=== PATIENT | female | born 1965 | race Caucasian/White ===

== ENCOUNTER 2021-04-06 17:34 | Emergency (ER) | payer OTHER, SELFPAY ==
[2021-04-06] VITALS (32 sets, daily range): BP systolic 91–143; BP diastolic 66–101; PULSE 88–178; RESP 11–22; TEMP 36.4–36.6; O2SAT 97–100
--- NOTE | 2021-04-06 17:30 | RT.EKG_ITS ---
APPROVED REPORT Exam: Resting ECG Reason for Exam: tachycardia Patient Location: E HR:160 bpm ECG Measurements Heart Rate 160 AXIS MD [id number] P 0 QRSd 100 QRS 43 QT 295 T 23 QTc 481 Conclusion SVT...rate> 99
[2021-04-06] MEDS: Normal Saline Flush 10 ML SYR IVP (18:29)
[2021-04-06] MEDS: Adenosine 6 MG/2 ML VIAL IVP (18:29)
[2021-04-06 19:10] LABS: Abs Immature Grans 0.02 10^3/uL (0.0-0.06); Absolute Basophil Count 0.09 10^3/uL (0.0-0.2); Absolute Eosinophil Count 0.37 10^3/uL (0.0-0.7); Absolute Lymphocyte Count 3.38 10^3/uL (1.2-3.4); Absolute Monocyte Count 0.71 10^3/uL (0.1-0.8); Eosinophils % 4.1; HCT 41.7 % (36.0-46.0); HGB 13.9 g/dL (11.2-15.7); Immature Grans % 0.2; Lymphocytes % 37.3; MCH 29.3 pg (27.0-33.0); MCHC 33.3 % (32.0-36.0); MPV 9.8 fL (8.0-11.0); Monocytes % 7.8; Neutrophils % 49.6; Nucleated RBC 0 %; Platelet Count 535 10^3/uL (130-400); RBC 4.74 10^6/uL (3.93-5.22); RDW 14.7 % (11.7-14.6); RDW-SD 47.6 fL; WBC 9.07 10^3/uL (4.4-10.8)
[2021-04-06 19:27] LABS: ALT 57 U/L (14-59); AST 33 U/L (15-37); Albumin 4.1 g/dL (3.4-5.0); Alkaline Phosphatase 94 U/L (46-116); Anion Gap 11.6 mmol/L (3-11); BUN 16 mg/dL (7-18); Bilirubin, Total 0.3 mg/dL (0.2-1.0); CO2 25.4 mmol/L (21.0-32.0); CREATININE 0.9 mg/dL (0.55-1.02); Calcium 8.7 mg/dL (8.5-10.1); Chloride 104 mmol/L (98-107); Glucose 135 mg/dL (74-106); Magnesium 2.1 mg/dL (1.8-2.4); Potassium 3.7 mmol/L (3.5-5.1); Sodium 141 mmol/L (136-145); TSH (W/Ref FT4) 0.36 uIU/mL (0.36-3.74); Troponin I < 0.05 ng/mL (<0.06)
--- NOTE | 2021-04-06 19:30 | RT.EKG_ITS ---
APPROVED REPORT Exam: Resting ECG Reason for Exam: medication cardioversion Patient Location: E HR:97 bpm ECG Measurements Heart Rate 97 AXIS OH 199 P 54 QRSd 91 QRS 39 QT 345 T 31 QTc 440 Conclusion Sinus rhythm...normal P axis, V-rate 60- 99 Borderline prolonged OH interval...OH >197, V-rate 91-120
--- NOTE | 2021-04-06 19:43 | W.ED.GENAD ---
Discharge Plan Disposition Patient Disposition: HOME Condition: Stable Discharge Details Clinical Impression: SVT (supraventricular tachycardia) Primary Care Provider: Do Bolden ED Provider: Yang Hopper Home Meds and New Rx's Prescriptions: Continued nortriptyline 10 mg Capsule 20 mg PO HS RF: 0 omeprazole 20 mg Capsule,Delayed Release(Dr/Ec) 20 mg PO DAILY RF: 0 duloxetine [Cymbalta] 60 mg Capsule,Delayed Release(Dr/Ec) 60 mg PO DAILY RF: 0 diclofenac sodium 75 mg Tablet,Delayed Release (Dr/Ec) 75 mg PO BID RF: 0 cyclobenzaprine 10 mg Tablet 10 mg PO BID PRNRF: 0 Discharge Instructions Instructions: Supraventricular Tachycardia (ED) Additional Instructions: Today you were seen in the emergency department and had a supraventricular tachycardia noted on EKG. Adenosine 6 mg IV was administered and you converted to a sinus rhythm. It is recommended that you rest today and tomorrow with no exertional activities until cleared by a physician. Please do not consume caffeine or alcohol until cleared by physician. Please contact your primary care physician to arrange follow-up. Please contact [facility] cardiology group on Thursday to arrange timely follow-up. Return to the ER for any worsening or new concerning symptoms. Referrals: Do Bolden [Primary Care Provider] - Maida Prasad MD [MD CONSULTING PHYSICIAN] - Discharge Data Discharge Date/Time-TO BE ENTERED AT DEPARTURE: 04/06/21 20:17 Medical Decision Making 55-year-old female presenting with palpitations, patient is tachycardic and normotensive but is symptomatic with dizziness. I reviewed and interpreted rhythm on ekg monitor as supraventricular tachycardia. EKG was reviewed and interpreted by me: SVT. Please see report. Vagal maneuvers were attempted and unsuccessful in converting SVT. Patient provided informed consent to cardioversion. Adenosine 6 mg IV was administered and patient successfully converted to sinus rhythm without complication. Labs to assess for electrolyte normalities and thyroid dysfunction reviewed and nondiagnostic. Patient was reassessed and comfortable, hemodynamically stable. Second EKG was reviewed interpreted by me: Please see report, normal sinus rhythm. I called and spoke with on-call clinical research scientist Dr. Bailey at [facility] [place], discussed ED presentation and course, she does not recommend additional intervention at this time, she recommends discharge with outpatient follow-up with her clinic. Plan was discussed with patient. Disposition decision was made weighing the risks and benefits of hospitalization versus outpatient treatment, the risk for further decompensation, and the patient's wishes. The patient was stable and requested discharge. Prior to discharge, my usual and customary return precautions were reviewed with the patient - this included follow-up instructions and reason to return to the emergency department if condition worsens, does not improve as expected, or other new concerns arise. HPI General Mode of arrival: EMS. Date/Time Provider Initiated Documentation: 04/06/21 17:50. Limitations to Documentation: no limitations. Information obtained by: patient. HPI Narrative: 55-year-old female with no significant cardiac history presents with chief complaint of palpitations. Patient notes that she had sudden onset of rapid heartbeat around 5:00. Symptoms have persisted. She has associated fatigue and dizziness. She denies associated chest pain. Symptoms are moderate to severe. No modifiers. Patient notes that she intermittently has brief periods of palpitations chronically with no known cardiac condition. She does state that her son has had episode of SVT in the past. Patient has no low lower extremity swelling or calf pain. Related Data Home Medications Medication Instructions Recorded Confirmed cyclobenzaprine 10 mg PO BID PRN 04/06/21 04/06/21 diclofenac sodium 75 mg PO BID 04/06/21 04/06/21 duloxetine [Cymbalta] 60 mg PO DAILY 04/06/21 04/06/21 nortriptyline 20 mg PO HS 04/06/21 04/06/21 omeprazole 20 mg PO DAILY 04/06/21 04/06/21 Allergies Allergy/AdvReac Type Severity Reaction Status Date / Time Sulfa (Sulfonamide Allergy Skin Rash Unverified 04/06/21 18:06 Antibiotics) adhesive AdvReac Skin Rash Unverified 04/06/21 18:06 General Stated Complaint: Dizzy/Sync BIANCA: 2 Review of Systems All systems reviewed & are unremarkable except as noted in HPI and below Constitutional Constitutional: Denies fever(s) Cardiovascular Cardiovascular: Reports as per HPI, Denies chest pain and Reports rapid heart rate PFSH Social History Smoking/Tobacco Use Status: Never Smoking risk assessment performed?: Yes Alcohol Intake: current Alcohol Intake frequency: a few times a week Drug use: Never Substance use type: does not use Do you feel safe at home: Yes Do you feel safe in your relationship?: Yes Exam Const General: cooperative and no acute distress HENMT Mouth: moist mucous membranes Eyes Conjunctivae: normal conjunctivae Sclera: normal sclerae Neck Neck: trachea midline and supple Resp Auscultation: clear to auscultation bilaterally, no rales, no rhonchi and no wheezes Cardio Rate: tachycardic Rhythm: regular rhythm GI Palpation: soft, not firm, no guarding, no masses, not rigid and nontender Skin General skin exam: no rashes or lesions noted Neuro General: patient alert, patient awake, patient oriented x3 and tone normal Extrem General: no calf tenderness and no edema Psych Appearance: grossly normal Mental Status: mental status grossly normal Course Vital Signs Vital signs: Vital Signs Temperature 36.6 C 04/06/21 17:40 Pulse 178 H 04/06/21 17:40 Respiratory Rate 18 04/06/21 17:40 Blood Pressure 117/99 H 04/06/21 17:40 Pulse Oximetry 100 04/06/21 17:40 Temperature 36.6 C 04/06/21 17:40 Temperature Source Tympanic 04/06/21 17:40 Pulse 95 H 04/06/21 18:33 Pulse 98 H 04/06/21 18:31 Respiratory Rate 13 04/06/21 18:31 Respiratory Effort 04/06/21 17:52 Respiratory Depth Normal 04/06/21 17:52 Respiratory Pattern Normal 04/06/21 17:52 Blood Pressure 138/81 04/06/21 18:33 Blood Pressure Mean 95 04/06/21 18:31 Blood Pressure Position Sitting 04/06/21 17:40 Pulse Oximetry 98 04/06/21 18:31 Oxygen Delivery Method Room Air 04/06/21 17:40 Oxygen Flow Rate 0 04/06/21 17:40 Pain Level 0 04/06/21 17:40 Lab/Test Results Lab/Test Results: Laboratory Tests Range/Units 04/06/21 04/06/21 18:01 18:01 WBC (4.4-10.8) 10^3/uL 9.07 RBC (3.93-5.22) 10^6/uL 4.74 Hgb (11.2-15.7) g/dL 13.9 Hct (36.0-46.0) % 41.7 MCV (80-95) fL 88.0 MCH (27.0-33.0) pg 29.3 MCHC (32.0-36.0) % 33.3 RDW (11.7-14.6) % 14.7 H Plt Count (130-400) 10^3/uL 535 H MPV (8.0-11.0) fL 9.8 Immature Gran % 0.2 Neutrophils % 49.6 Lymphocytes % 37.3 Monocytes % 7.8 Eosinophils % 4.1 Basophils % 1.0 Nucleated RBC % % 0 Absolute Neutrophils (1.2-6.7) 10^3/uL 4.50 Absolute Lymphocytes (1.2-3.4) 10^3/uL 3.38 Absolute Monocytes (0.1-0.8) 10^3/uL 0.71 Absolute Eosinophils (0.0-0.7) 10^3/uL 0.37 Absolute Basophils (0.0-0.2) 10^3/uL 0.09 Sodium (136-145) mmol/L 141 Potassium (3.5-5.1) mmol/L 3.7 Chloride (98-107) mmol/L 104 Carbon Dioxide (21.0-32.0) mmol/L 25.4 Anion Gap (3-11) mmol/L 11.6 H BUN (7-18) mg/dL 16 Creatinine (0.55-1.02) mg/dL 0.9 Estimated GFR/1.73 m2 (mL/min/1.73m2) >= 60.00 Glucose (74-106) mg/dL 135 H Calcium (8.5-10.1) mg/dL 8.7 Magnesium (1.8-2.4) mg/dL 2.1 Total Bilirubin (0.2-1.0) mg/dL 0.3 AST (15-37) U/L 33 ALT (14-59) U/L 57 Alkaline Phosphatase (46-116) U/L 94 Troponin I (<0.06) ng/mL < 0.05 Total Protein (6.4-8.2) g/dL 8.0 Albumin (3.4-5.0) g/dL 4.1 TSH (0.36-3.74) uIU/mL 0.36 Critical Care Time Critical Care Time Critical Care Time: Yes Total Critical Care Time: 40 Attestation: I spent greater than 40 minutes addressing this patient's immediate life threats. Please see MDM section of note. This time was spent engaged in work directly related to the patient's care, exclusive of separate procedures, and failure to initiate these interventions would have likely resulted in clinically significant or life threatening deterioration in the patient's condition. PAWSS Have you Been Recently Intoxicated or Drunk Within the Last 30 days?: No Have you Ever Experienced Previous Episodes of Alcohol Withdrawal?: No Have you ever Experienced Withdrawal Seizures?: No Have you ever Experienced Delirium Tremens(DT)s?: No Have you ever undergone Alcohol Rehabilitation Treatment (i.e, inpt ot outpatient treatment programs)?: No Have you ever Experienced Blackouts?: No Have you ever Combined Alcohol with other Downers within the last 90 days?: No Have you ever Combined Alcohol with any other Substance of Abuse during the last 90 days?: No Positive Blood Alcohol level on Presentation? [PCS.BAL]: No Evidence of Increased Autonomic Activity (i.e. HR>120, tremor, sweating, agitation, nausea)?: No Result: 0
== END 2021-04-06 20:17 | disposition home or self-care (01) ==
PROVIDERS: Emergency Provider Student in an Organized Health Care Education/Training Program; PCP Nurse Practitioner Adult Health
DX: I47.1 Supraventricular tachycardia (principal)
CPT/HCPCS: 36415; 80053; 93005; 96374; 99291; 83735; 84443; 84484; 85025; 93010; J0153